=== PATIENT | female | born 1990 | race Caucasian/White ===

== ENCOUNTER 2017-04-01 13:25 | Emergency (ER) | payer OTHER ==
[2017-04-01 13:31] VITALS: BP 113/75
[2017-04-01] MEDS ORDERED: Ketorolac INJ* 60 MG/2 ML VIAL IM ONE (14:02)
--- NOTE | 2017-04-01 14:36 | RAD ---
HISTORY: Left shoulder injury COMPARISONS: July 20, 2016 VIEWS: 4, Frontal internal rotation, external rotation, outlet, and axillary views of the left shoulder FINDINGS: BONE DENSITY: Normal. BONES: There is no displaced fracture. JOINTS: There is no arthropathy. ALIGNMENT: There is no dislocation. SOFT TISSUES: Unremarkable. OTHER FINDINGS: None. IMPRESSION: NO ACUTE OSSEOUS INJURY. IF SYMPTOMS PERSIST, RECOMMEND REPEAT IMAGING.
[2017-04-01] MEDS ORDERED: Ibuprofen TAB* 400 MG PO ONE (14:52)
--- NOTE | 2017-04-01 14:54 | ED ---
Upper Extremity Pain - HPI Summary HPI Summary: 26F presents with left shoulder pain since sunday. She has history of dislocating her shoulder. She states she dislocated it and then placed in back in her self when she was pulling large crates full of water. She states since then she has noticed inc pain and weakness in the shoulder. She has chronic numbness along her left ulnar nerve with multiple tests to try and evaluate it. She has been using advil for her pain. she is right handed. - History of Current Complaint Chief Complaint: EDShoulderClavicleIsanderj Stated Complaint: LT SHOULDER PAIN Time Seen by Provider: 04/01/17 13:44 - Allergies/Home Medications Allergies/Adverse Reactions: Allergies Allergy/AdvReac Type Severity Reaction Status Date / Time No Known Allergies Allergy Verified 04/01/17 13:26 PMH/Surg Hx/FS Hx/Imm Hx Endocrine/Hematology History: Denies: Hx Anticoagulant Therapy Cardiovascular History: Denies: Hx Hypertension Infectious Disease History: No Infectious Disease History: Denies: Traveled Outside the [place] in Last 30 Days - Family History Known Family History: Positive: Hypertension - Social History Alcohol Use: None Substance Use Type: Reports: None Smoking Status (MU): Current Every Day Smoker Review of Systems Negative: Fever Negative: Chest Pain Negative: Shortness Of Breath Positive: Myalgia - left shoulder pain All Other Systems Reviewed And Are Negative: Yes Physical Exam Triage Information Reviewed: Yes Vital Signs On Initial Exam: Initial Vitals Temp Pulse Resp BP Pulse Ox 98.2 F 116 18 113/75 99 04/01/17 13:27 04/01/17 13:27 04/01/17 13:27 04/01/17 13:27 04/01/17 13:27 Vital Signs Reviewed: Yes Appearance: Positive: Well-Appearing Skin: Positive: Warm, Dry Head/Face: Positive: Normal Head/Face Inspection Eyes: Positive: Normal, Conjunctiva Clear Respiratory/Lung Sounds: Positive: Clear to Auscultation, Breath Sounds Present Cardiovascular: Positive: Normal, RRR Musculoskeletal: Positive: Limited @ - left shoulder due to pain, Other - good pulses, capillary refill < 2 secs, no step off or deformity to shoulder, pos apprehension test, neg yearsons, - [place] Coma Scale Coma Scale Total: 15 Diagnostics - Vital Signs Vital Signs Temp Pulse Resp BP Pulse Ox 04/01/17 13:27 98.2 F 116 18 113/75 99 - Laboratory Lab Statement: Any lab studies that have been ordered have been reviewed, and results considered in the medical decision making process. - Radiology shoulder Xray Interpretation: No Acute Changes Radiology Interpretation Completed By: Radiologist Course/Dx - Course Course Of Treatment: 26F presents with left shoulder pain s/p she dislocated on sunday and then relocated it herself. she has still been using the shoulder and has been notice weakness and inc pain. has chronic numbness/tingling in her pinky and ring finger. on exam no deformity noted, pos apprehension test, xray normal, placed in sling and will have follow up with ortho for potential rotator cuff injury with the possible dislocation, patient understands and agrees with plan - Diagnoses Differential Diagnosis/HQI/PQRI: Positive: Fracture (Closed), Strain, Sprain Provider Diagnoses: Left shoulder pain Discharge - Discharge Plan Condition: Good Disposition: HOME Prescriptions: Ibuprofen TAB* [Motrin TAB* 800 MG] 800 mg PO Q6H #25 tab Patient Education Materials: Shoulder Sprain (ED) Referrals: Abdelrahman HAY,Bryant Blood [Primary Care Provider] - Elieser Tsang MD [Medical Doctor] - Additional Instructions: Take Tylenol and ibuprofen every 6 hours as needed for pain Ice/heat area Keep sling on area Follow up with ortho Return to ED if develop any new or worsening symptoms
== END 2017-04-01 15:11 | disposition home or self-care (01) ==
LOC: ED 13:25
DX: M25.512 Pain in left shoulder (principal)
CPT/HCPCS: 96372; 99282; A9270-GY; J1885

== ENCOUNTER 2017-06-11 12:14 | Day surgery (SDC) | payer OTHER ==
--- NOTE | 2017-05-28 15:40 | HP ---
PREOPERATIVE HISTORY AND PHYSICAL: DATE OF ADMISSION/SURGERY: 06/11/17 DATE OF OFFICE VISIT: 05/23/17 ATTENDING SURGEON: Dr. Shanthi Pineda * (DICTATED BY GÉNESIS SCHROEDER) PROCEDURE: Left shoulder arthroscopic labral repair, decompression, debridement , subpectoral biceps tenodesis. CHIEF COMPLAINT: Left shoulder pain and instability. HISTORY OF PRESENT ILLNESS: Janie is a 26-year-old female, who presents to the clinic for history of two left shoulder dislocations and left shoulder instability and pain. She has failed conservative measures to include physical therapy and injections; therefore, agreed to undergo a left shoulder arthroscopic labral repair, decompression, subpectoral biceps tenodesis with Dr. Pineda on 06/11/17. PAST MEDICAL HISTORY: Migraines, depression, anxiety, PTSD, and cervicalgia. PAST SURGICAL HISTORY: , left ear surgery. Denies prior complications with anesthesia. MEDICATIONS: 1. Tramadol 50 mg 1 by mouth every 6 hours as needed. 2. Valium 5 mg take 1 to 2 tabs prior to MRI. 3. Paxil 40 mg 1 by mouth every day. 4. Maxalt 10 mg by mouth 1 at onset, may repeat in 2 hours x1, maximum daily dose of 3. 5. Multivitamin For Her once a day over the counter. ALLERGIES: TAPE and LATEX. No known drug allergies. FAMILY HISTORY: Positive for heart disease and diabetes. SOCIAL HISTORY: She lives with her daughter. She works as a home health aide. She smokes half a pack per day. She occasionally drinks alcohol. She is right - hand dominant. She denies illegal drug use. REVIEW OF SYSTEMS: General: Negative for fevers, chills, night sweats. No known anesthesia problems. HEENT: Positive for migraines. Denies lightheadedness or syncopal episodes. Integumentary: Negative for abrasions, lesions, or open wounds. Cardiothoracic: Negative for chest pain, palpitations , or edema. Negative for hypertension. Pulmonary: Negative for shortness of breath with exertion, chronic cough, or COPD. GI: Negative for nausea, vomiting, diarrhea, constipation, or GERD. : Negative for nocturia, urinary frequency, history of UTIs, or kidney problems. Musculoskeletal: Positive for current complaint. Positive for numbness and tingling in her left hand. Denies history of seizures, stroke, or epilepsy. Endocrine: Negative for diabetes or thyroid issues. Heme: Negative for easy bruising, history of bleeding disorder , history of DVT or PE. Infectious Disease: Negative for history of MRSA, hep C , or HIV. PHYSICAL EXAMINATION GENERAL: A 26-year-old, well-developed, well-nourished female, in no acute distress. Alert and oriented x3. Appropriate mood and affect. VITAL SIGNS: Height 62, weight 214, blood pressure 126/82, respiratory rate 15 , BMI 39.1. HEENT: Normocephalic, atraumatic. Throat clear. NECK: Supple. PULMONARY: Lungs are clear to auscultation bilaterally. No wheezing, rhonchi, or rales. CARDIO: Regular rate and rhythm. S1, S2. No murmurs, rubs, or gallops. No edema. ABDOMEN: Positive bowel sounds. Soft, nontender. NEURO: Alert and oriented x3. Cranial nerves grossly intact. Sensation intact to light touch. MUSCULOSKELETAL: Left upper extremity: Skin is intact, no warmth or erythema, tenderness to palpation over the bicipital groove and subacromial space. Forward flexion to 100 and abduction to 110, external rotation to 30, internal rotation to the lateral hip. +4/5 strength on rotator cuff testing, however, with significant pain. Positive Neer, Speed, Singh-Octavio, and [place]. +2 radial pulse. Sensation intact to light touch distally. DIAGNOSTIC STUDIES: MR arthrogram of the left shoulder revealed partial thickness tear of the undersurface of the supraspinatus tendon, damage to the biceps tendon, possible SLAP tear and AC joint arthritis. IMPRESSION: Left shoulder instability, labral tear, biceps tendinitis, and impingement. PLAN: The patient is scheduled to undergo a left shoulder arthroscopic labral repair, decompression, debridement, and subpectoral biceps tenodesis with Dr. Pineda on 06/11/17. She will return to the office in 10 to 14 days postop for followup and suture removal. A prescription for Percocet was e-prescribed to her pharmacy for postop pain management and prescription for Keflex was sent for antibiotic prophylaxis. GÉNESIS SCHROEDER [id number]/[facility] #: [id number] [facility] HOSPITALNuno
[~2017-06-11 12:14] MED LIST: Buffered Lidocaine 0.9% SYRIN* 5 ML/SYR SYRINGE INTRADERM ONE; Dexamethasone IV* 4 MG/ML 1 ML (4 MG) IV SLOW PU ONE; Famotidine IV* 10 MG/ML 2 ML (20 mg) IV ONE
[2017-06-11] MEDS ORDERED: Dexamethasone IV* 4 MG/ML 1 ML (4 MG) ONE (12:48)
[2017-06-11] MEDS ORDERED: Famotidine IV* 10 MG/ML 2 ML (20 mg) ONE (12:48)
[2017-06-11] MEDS ORDERED: Clindamycin 900 MG IVPREMIX(* 900 MG/50 ML SDV IV ONE (13:21)
[2017-06-11] MEDS ORDERED: Levalbuterol 0.63MG/3ML NEB INH ONE (13:50)
[2017-06-11] MEDS ORDERED: Levalbuterol 1.25MG/0.5ML NEB ONE (14:04)
[2017-06-11] MEDS ORDERED: Bupivacaine 0.25% SDV* 30 ML ONE ×2 (14:05→15:19)
[2017-06-11] MEDS ORDERED: Lidocaine 2% PF * 5 ML VIAL ONE (14:07)
[2017-06-11] MEDS ORDERED: Ketorolac INJ* 30 MG/ML 1 ML VIAL ONE (14:07)
[2017-06-11] MEDS ORDERED: Ondansetron INJ* 2 MG/ML VIAL ONE (14:07)
[2017-06-11] MEDS ORDERED: Propofol* 10 MG/ML 20 ML BTL IV PUSH ONE (14:07)
[2017-06-11] MEDS ORDERED: Atracurium* 10 MG/ML 10 ML VIAL ONE (14:11)
[2017-06-11] MEDS ORDERED: fentaNYL* 50 MCG/ML 5 ML VIAL (250 MCG VIAL) ONE (14:13)
[2017-06-11] MEDS ORDERED: Midazolam* 1 MG/ML 5 ML VIAL (5 MG) ONE (14:13)
[2017-06-11] MEDS ORDERED: fentaNYL* 50 MCG/ML 2 ML VIAL (100 MCG VIAL) ONE ×2 (15:18→17:01)
[2017-06-11] MEDS ORDERED: Glycopyrrolate IV* 0.2 MG/ML 1 ML VIAL ONE (15:30)
[2017-06-11] MEDS ORDERED: oxyCODONE/Acetamin 5/325 MG* TAB PO PRN (16:15)
[2017-06-11] MEDS ORDERED: DiMENhydriNATE IV* 50 MG/ML VIAL IV PUSH PRN (16:15)
[2017-06-11] MEDS ORDERED: Ondansetron INJ* 2 MG/ML VIAL IV PRN (16:15)
[2017-06-11] MEDS ORDERED: HYDROmorphone* 1 MG/ML 1 ML SYR IV PRN (16:15)
[2017-06-11] MEDS ORDERED: fentaNYL* 50 MCG/ML 2 ML VIAL (100 MCG VIAL) IV PRN (16:15)
[2017-06-11] MEDS ORDERED: Scopolamine 1.5 mg* PATCH TRANSDERM PRN (16:15)
[2017-06-11] MEDS ORDERED: oxyCODONE/Acetamin 5/325 MG* TAB ONE (17:10)
[2017-06-11 17:43] VITALS: BP 118/62
--- NOTE | 2017-06-13 18:08 | OP ---
DATE OF OPERATION: 06/11/17 [facility] DATE OF : [birth year] SURGEON: Shanthi Pineda MD JACKER FEEDER: GÉNESIS Reynaga. An activity assistant was needed for the entirety of the case to help with positioning, retraction, and was utilized throughout all portions of the case. ANESTHESIOLOGIST: Dr. Bergeron. ANESTHESIA: General. PRE-OP DIAGNOSIS: Left shoulder recurrent anterior dislocation with bicipital tendinitis and impingement as well as radiculopathy. POST-OP DIAGNOSIS: Left shoulder recurrent anterior dislocation with bicipital tendinitis and impingement as well as radiculopathy. OPERATIVE PROCEDURE: Left shoulder arthroscopy with: 1. Glenohumeral debridement. 2. Anterior labral repair. 3. Subacromial decompression with acromioplasty. 4. Subpectoral biceps tenodesis. COMPLICATIONS: None. ESTIMATED BLOOD LOSS: Minimal. IMPLANTS USED: Three Bioraptors and one Q-FIX anchor. INDICATIONS: Janie Sheridan is a 26-year-old female, who sustained a work- related injury in July 2016, where she dislocated her shoulder. She subsequently had a second dislocation at her home. She had tried a course of physical therapy. She also had some radiculopathy symptoms, which come and go. She had impingement on top of the instability. She has failed conservative management. She has had injections with some relief of the impingement-type symptoms, but she feels that the shoulder is unstable. After an extensive discussion and obtaining a worker's Comp approval, she has elected to proceed with left shoulder surgery. Risks included, but are not limited to bleeding, infection, damage to nerves, vessels, surrounding structures, wound nonhealing, persistent pain, need for further surgery, scarring, stiffness, incomplete relief of symptoms, risks of adhesive capsulitis, redislocation, fracture, risk of anesthesia, and risk of DVT. DESCRIPTION OF PROCEDURE: The patient was greeted in the preoperative area by the attending surgeon. Correct extremity was marked and consent was confirmed. The patient was brought back to the operative suite where she was placed in supine position on operating table. She underwent general anesthesia with endotracheal intubation after which she was placed in the right lower decubitus position. All bony prominences were padded. She was supported with a peg board. The left shoulder was then draped unsterile with 10 pounds of traction. A Vera hugger and SCDs were placed. The left shoulder was prepped and draped in usual sterile fashion beginning with chlorhexidine soap scrub, and alcohol wipe, and a final prep with ChloraPrep. After appropriate surgical pause indicating site, side, procedure, and administration of antibiotics, a posterolateral portal was made sharply with an 11 blade. The scope was introduced in the joint. The joint was examined. There was a small Hill-Sachs deformity. The glenohumeral joint had grade 0-1 changes. The biceps had erythema and was blood flow. The undersurface of the rotator cuff had no obvious undersurface tearing as subscapularis had minimal fraying. At this point, a low anterior portal was made and 8 mm cannula was placed. The labrum appeared to be intact, but was probed and there was evidence of tearing and it has healed incorrectly. The shoulder was sitting somewhat low and the shoulder, however was not dislocated frankly. The posterior labrum was intact. Inferior recess was intact. There was no evidence of HAGL lesion. At superior accessory portal, a 5 mm port was placed in superior recess. At this point, the labrum was then pealed back and taken down, beginning at the 3 o'clock position all the way to the 6 o'clock position. The bony surfaces were then prepared using a rasp. The capsule was also gently rasped as well, but the labrum quality was quite soft, and so care was taken not to damage this any further. The shaver was also helped to prepare the glenoid edge. Once the bony preparation was complete, 3 anchors were placed beginning at the 5:30 position, then 4:30, and then 3:30 position. The first anchor was passed with excellent purchase. The labrum was secured in a horizontal mattress configuration and tied down using arthroscopic knot tying. The second anchor was placed in a simple fashion as was the third. This helped to restore the capsule and labrum. The shoulder sat well. At this point, attention was directed to the biceps, which was inflamed and a tenotomy was done for later tenodesis. All fluid and debris was removed from the joint and attention was directed to the subacromial space. The scope was positioned in the subacromial space. The lateral portal was made in an outside-in fashion. A shaver was used to remove the abundant bursa, of which there was very thick abundant hyperemic bursa. This exposed the rotator cuff, which appeared to be intact. There was mild amount of fraying, but no more than 10% to 20% along the posterior aspect where the superior and inferior joints connect. The undersurface of the acromion had a small downward slopping spur. Once the synovectomy and bursectomy was complete, the undersurface of the acromion was then skeletonized using electrocautery device. The small subacromial spur was then debrided back using a 4-0 mm oval nyasia. Once all fluid and debris was removed, a 18 gauge needle was placed in arthroscopic visualization for later Depo- Medrol injection. The bed was airplaned to the left side. The anterior aspect of the shoulder was reprepped with ChloraPrep. A #15 blade was used to create an anterior incision in line with the biceps tendon encompassing the inferior two-thirds of the pec tendon. The soft tissue was carefully dissected. The dissection was done using the Metzenbaum scissors. Once the pec fascia was identified, the major dissection was done bluntly. The pec was identified and retracted superiorly. The bicipital groove was palpated and the biceps was removed and brought through the wound using a right angle clamp. The bicipital groove was then prepared in usual fashion with electrocautery, red ball rasp, and osteotome. The Q-FIX anchor was then used and drilled unicortically. The Q- FIX anchor was deployed with excellent purchase. The sutures were then passed to the tendon approximately 1 cm musculotendinous junction and the excess stump was sharply excised and shuttled back into the wound. The wounds were copiously irrigated with sterile saline. The portals were closed with 3-0 nylon. The anterior wound was closed in layers with 2-0 Vicryl and 3-0 Monocryl. The glenohumeral joint was injected with 0.25% Marcaine plain as well as the portal sites in the anterior wound. A total of 60 cc were used. Sterile dressings were applied. A Cryo/Cuff and UltraSling were applied. She was awoken from anesthesia and transferred to the PACU in stable condition. POSTOPERATIVE PLAN: She will be nonweightbearing. She will be in the sling for approximately 4 weeks. She will be allowed to start working on passive range of motion around 3-4 weeks with therapy. I will see the patient back in 10 to 14 days. She will be discharged on pain medications and antibiotics. DVT prophylaxis was considered, but deferred due to no previous personal or family history. [id number]/[facility] #: [id number] RACHELLE
[2017-06-14] MEDS ORDERED: Scopolomine PATCH Remove* 1 NOTE MISC PATCH OFF ONE (16:17)
== END 2017-06-11 17:47 | disposition home or self-care (01) ==
LOC: OREAST 12:14
PROVIDERS: ATTEND Orthopaedic Surgery
DX: M24.412 Recurrent dislocation, left shoulder (principal); M75.22 Bicipital tendinitis, left shoulder; M75.42 Impingement syndrome of left shoulder; M54.10 Radiculopathy, site unspecified; F17.210 Nicotine dependence, cigarettes, uncomplicated
CPT/HCPCS: 81025; A9270-GY; C1776; J1100; J1885; J2250; J2405; J2704; J3010

== ENCOUNTER → 2018-11-25 09:47 | Emergency (ER) | payer BC, OTHER ==
[~2018-11-25 09:47] MED LIST changes: -Buffered Lidocaine 0.9% SYRIN* 5 ML/SYR SYRINGE INTRADERM ONE; -Dexamethasone IV* 4 MG/ML 1 ML (4 MG) IV SLOW PU ONE; +Dexamethasone IV* 4 MG/ML 5 ML VIAL (20 MG) IVPB ONE; -Famotidine IV* 10 MG/ML 2 ML (20 mg) IV ONE; +Ketorolac INJ* 30 MG/ML 1 ML VIAL IV PUSH ONE; +NS 0.9% 1000 ML* 2,000 ML IV ONE; +PROCHLORPERAZINE INJ 5 MG/ML 2 ML VIAL IV ONE; +diPHENhydraMINE PO* 50 MG PO ONE
--- NOTE | 2018-11-25 10:20 | ED ---
Headache - HPI Summary HPI Summary: A 28 y/o female presents to [facility] with a chief complaint of intermittent migraines since 11/22/18. Per triage note, migraine for three days. sensitivity to light and sound, nausea, emesis x1. has maxalt at home, but not providing relief." The patient rates her pain as a 10/10. She claims that her pain is "right frontal around the forehead" She reports that the last time she had these symptoms she had a "minor seizure". She claims her migraine started at 08:30 on 11/25/18. In addition to the symptoms noted in the triage note, she also reports dizziness, eye twitching and drooping, feeling lethargic and speech impairment. She reports taking Zyrtec. She claims that she used to take medications for her migraines, but the medications mad her tachycardic. At triage her HR is [address] Kasper, neurologist at [facility], for her migraines. She is requesting for a Brain CT. She claims that her migraines have been worsening over the past four months and that she usually gets migraines four days a week. She has a Hx of anxiety and depression. - History Of Current Complaint Chief Complaint: EDHeadache Stated Complaint: HEADACHE X3 DAYS Hx Obtained From: Patient Last Known Well Date: 11/21/18 Onset/Duration: Started days ago, Still Present Initially Headache Was: Initial Pain Scale(0-10)= - 10 Currently Pain Is: Current Pain Scale(0-10)= - 10 Timing: Intermittent, Lasting: - hours Character: Migraine Location of Headache: Frontal Aggravating Factor: Bright Lights Allevating Factors: Nothing Associated Signs And Symptoms: Dizziness, Nausea, Vomiting - Allergies/Home Medications Allergies/Adverse Reactions: Allergies Allergy/AdvReac Type Severity Reaction Status Date / Time latex Allergy Hives Verified 11/25/18 09:59 Penicillins Allergy Nausea And Verified 11/25/18 09:59 Vomiting Home Medications: Home Medications Omeprazole 20 mg PO DAILY 11/25/18 [History Confirmed 11/25/18] PMH/Surg Hx/FS Hx/Imm Hx Endocrine/Hematology History: Reports: Hx Anemia Denies: Hx Anticoagulant Therapy, Hx Diabetes Cardiovascular History: Denies: Hx Hypertension, Hx Pacemaker/ICD Respiratory History: Reports: Other Respiratory Problems/Disorders - 14 YR HX OF SMOKING Denies: Hx Asthma GI History: Reports: Hx Gastroesophageal Reflux Disease, Hx Irritable Bowel History: Denies: Hx Renal Disease Musculoskeletal History: Reports: Other Musculoskeletal History - WORK RELATED LEFT SHOULDER INJURY 09/20 Sensory History: Reports: Hx Contacts or Glasses - BOTH, WILL WEAR GLASSES DOS Denies: Hx Hearing Aid Opthamlomology History: Reports: Hx Contacts or Glasses - BOTH, WILL WEAR GLASSES DOS Neurological History: Reports: Hx Migraine, Other Neuro Impairments/Disorders - 09/20 WORK RELATED INJURY TO LEFT SHOULDER Psychiatric History: Reports: Hx Anxiety, Hx Depression Denies: Hx Panic Disorder - Surgical History Surgery Procedure, Year, and Place: LEFT TYMPANOPLASTY 1996 [facility]. D& C 2005 [facility]. C- SECTION 2007 [facility]. LEFT SHOULDER RECONSTRUCTION 2016 Hx Anesthesia Reactions: Yes - NAUSEA POST Infectious Disease History: No Infectious Disease History: Denies: Traveled Outside the [place] in Last 30 Days - Family History Known Family History: Positive: Hypertension - Social History Alcohol Use: None Substance Use Type: Reports: None Smoking Status (MU): Current Every Day Smoker Type: Cigarettes Amount Used/How Often: 1/2 PPD FOR 14 YRS Length of Time of Smoking/Using Tobacco: 14 YRS Have You Smoked in the Last Year: Yes Review of Systems Negative: Fever Positive: Photophobia, Other - Positive: eye twitching and drooping ENT: Other - positive: sensitivity to sound Neurological: Other - Speech impaired, migraine, dizziness, lethargic Positive: Headache All Other Systems Reviewed And Are Negative: Yes Physical Exam - Summary Physical Exam Summary: Appearance: Well-appearing, Well-nourished, lying in bed comfortably Skin: Warm, dry, no obvious rash Eyes: sclera anicteric, no conjunctival pallor ENT: mucous membranes moist, pharynx appears normal Neck: Supple, nontender Respiratory: Clear to auscultation, no signs of respiratory distress Cardiovascular: Normal S1, S2. No murmurs. Normal distal pulses in tibial and radial bilaterally. Abdomen: Soft, nontender, normal active bowel sounds present Musculoskeletal: Normal, Strength/ROM Intact Neurological: A&Ox3, awake and alert, mentation is normal, speech is fluent and appropriate Psychiatric: affect is normal, does not appear anxious or depressed Triage Information Reviewed: Yes Vital Signs On Initial Exam: Initial Vitals Temp Pulse Resp BP Pulse Ox 98 F 102 16 130/88 96 11/25/18 09:56 11/25/18 09:56 11/25/18 09:56 11/25/18 09:56 11/25/18 09:56 Vital Signs Reviewed: Yes - [place] Coma Scale Best Eye Response: 4 - Spontaneous Best Motor Response: 6 - Obeys Commands Best Verbal Response: 5 - Oriented Coma Scale Total: 15 Diagnostics - Vital Signs Vital Signs Temp Pulse Resp BP Pulse Ox 11/25/18 09:56 98 F 102 16 130/88 96 - Laboratory Result Diagrams: 11/25/18 09:46 11/25/18 09:46 Lab Statement: Any lab studies that have been ordered have been reviewed, and results considered in the medical decision making process. - CT Brain CT Interpretation Completed By: Radiologist Summary of CT Findings: No acute intracranial pathology. ED physician has reviewed this imaging report. Headache Course/Dx - Course Course Of Treatment: This patient is a 28 y/o female who presents to [facility] with a chief complaint of intermittent migraines since 11/22/18. She has had a Hx of frequent migraines. She reports that maxalt does is not alleviating her pain. She also claims that she used to take other medications, but stopped because " it made her tachycardic". She is requesting for a Brain CT. The physical exam was unremarkable. In the ED course the patient was given Decadon IV, Toradol IV , Compazine IV, and Benadryl PO. Lab results obtained and are WNL. Brain CT was negative. The patient will be discharged with prescriptions for Decadron and Compazine. She is agreeable with this plan. - Diagnoses Provider Diagnoses: Migraine headache Discharge - Sign-Out/Discharge Documenting (check all that apply): Patient Departure - DC - Discharge Plan Condition: Improved Disposition: HOME Prescriptions: Dexamethasone TAB* [Decadron TAB*] 6 mg PO DAILY #3 tab Prochlorperazine TAB* [Compazine Tab*] 10 mg PO Q6H PRN #20 tab PRN Reason: Headache/Discomfort Patient Education Materials: Migraine Headache (ED) Referrals: Prudencio Quick MD [Primary Care Provider] - 3 Days (if needed) - Billing Disposition and Condition Condition: IMPROVED Disposition: Home - Attestation Statements Document Initiated by Scribe: Yes Documenting Scribe: Michele Liu Provider For Whom Scribe is Documenting (Include Credential): Cheikh Langley MD Scribe Attestation: I, Michele Liu, scribed for Cheikh Langley MD on 11/25/18 at 1711. Scribe Documentation Reviewed: Yes Provider Attestation: The documentation as recorded by the hollyeMichele accurately reflects the service I personally performed and the decisions made by me, Cheikh Langley MD Status of Scribe Document: Viewed
[2018-11-25 10:48] LABS: ABS Basophils 0.1 10^3/ul (0-0.2); ABS Eosinophils 0.1 10^3/ul (0-0.6); ABS Lymphocytes 1.7 10^3/ul (1.0-4.8); ABS Monocytes 0.4 10^3/ul (0-0.8); ABS Neutrophils 3.2 10^3/ul (1.5-7.7); ABS Nucleated RBC 0 10^3/ul; Eosinophil % 1.9 %; Hematocrit 40 % (35-47); Hemoglobin 13.1 g/dl (12.0-16.0); Lymphocyte % 31.5 %; Mean Corpuscular HGB Conc 33 g/dl (31-36); Mean Corpuscular Hemoglobin 27 pg (27-31); Mean Corpuscular Volume 81 fL (80-97); Mean Platelet Volume 7.9 fL (7.4-10.4); Nucleated Red Blood Cells % 0.1; Platelet Count 258 10^3/ul (150-450); Red Blood Count 4.92 10^6/ul (4.00-5.40); Red Cell Distribution Width 15 % (10.5-15); White Blood Count 5.5 10^3/ul (3.5-10.8)
[2018-11-25 11:10] LABS: ALT 10 U/L (7-52); AST 15 U/L (13-39); Albumin 3.8 g/dL (3.2-5.2); Albumin/Globulin Ratio 1.3 (1-3); Alkaline Phosphatase 90 U/L (34-104); Anion Gap 8 mmol/L (2-11); Blood Urea Nitrogen 9 mg/dL (6-24); CO2 Carbon Dioxide 23 mmol/L (22-32); Calcium 9.1 mg/dL (8.6-10.3); Chloride 106 mmol/L (101-111); Globulin 2.9 g/dL (2-4); Glucose 89 mg/dL (70-100); Potassium 3.6 mmol/L (3.5-5.0); Sodium 137 mmol/L (135-145); Total Protein 6.7 g/dL (6.4-8.9)
[2018-11-25 11:15] LABS: HCG Pregnancy < 0.60 mIU/mL
[2018-11-25 11:55] LABS: TSH (Thyroid Stimulating Horm) 0.68 mcIU/mL (0.34-5.60)
[2018-11-25 12:11] VITALS: BP 148/75
== END | disposition home or self-care (01) ==
LOC: ED 09:47
DX: G43.909 Migraine, unspecified, not intractable, without status migrainosus (principal); Z88.0 Allergy status to penicillin; Z91.040 Latex allergy status; F17.210 Nicotine dependence, cigarettes, uncomplicated
CPT/HCPCS: 36415; 70450; 80053; 84443; 84702; 85025; 96374; 96375; 99282; A9270-GY; J0780; J1100; J1885

== ENCOUNTER 2019-07-27 14:00 | Emergency (ER) | payer BC, OTHER ==
--- OUTSIDE RECORDS SUMMARY | 2019-07-27 14:16 | XMS REPORT | Continuity of Care Document ---
:1990 External Reference #:[id number] Author Name Socorro Reeder Care Team Providers Name Role Phone Bryant Quick MD Primary Care Physician Unavailable Payers Date Identification Numbers Payment Provider Subscriber Effective: 2012 Policy Number: [id number] [employer] Janie Sheridan Expires: 2016 Group Number: [id number] [address] [address] PayID: [id number] ANA ROSA Gordon [id number] Effective: 2016 Policy Number: [id number] Pete Sheridan Onset: 2016 Group Name: [id number] [address] PayID: [id number] Problems Active Problems Provider Date Unspecified sprain of left shoulder joint, Shanthi Pineda MD Onset: 07/24/2017 subsequent encounter Injury of shoulder region Shanthi Pineda MD Onset: 04/13/2017 Disorder of shoulder Shanthi Pineda MD Onset: 04/13/2017 Closed anterior dislocation of humerus Shanthi Pineda MD Onset: 04/13/2017 Neck pain Shanthi Pineda MD Onset: 04/13/2017 Brachial neuritis Shanthi Pineda MD Onset: 04/13/2017 Family History Date Family Member(s) Observation Comments General Heart Disease General Diabetes Social History Type Date Description Comments Sex Unknown Lives With Daughter Occupation Home Health Aide ETOH Use Occasionally consumes alcohol Tobacco Use Start: Unknown Patient is a current smoker, smokes every day Tobacco Use Start: Unknown Light tobacco smoker (10 or fewer cigarettes/day) Smoking Status Reviewed: 05/30/19 Light tobacco smoker (10 or fewer cigarettes/day) Exercise Type/Frequency Exercises sporadically Allergies, Adverse Reactions, Alerts Active Allergies Reaction Severity Comments Date Tape 07/20/2016 Latex 07/20/2016 Penicillins 10/23/2017 Amoxicillin 10/23/2017 Inactive Allergies NKDA 07/20/2016 Medications Active Medications SIG Qnty Indications Ordering Provider Date Paxil 1 by mouth every day Unknown 40mg Tablets Maxalt by mouth one at Unknown 10mg Tablets onset; may repeat in 2 hours x1. max daily dose three. Multi For Her once a day otc Unknown Capsules Aimovig 140 Dose administer 2 Unknown consecutive 70mg/ml Solution injections of the 70 Auto-Inject mg/ml auto inject, for a total of 140 mg Wellbutrin XL Unknown History Medications Mobic 1 by mouth daily 30tabs Shanthi Pineda MD 08/27/2017 - 15mg with food as 10/13/2017 Tablets needed for pain Medrol take as directed 21units M75.42 Shanthi Pineda MD 08/23/2017 - 4mg TBPK by packaging 10/13/2017 Diclofenac Sodium take 1 tablet 60tabs M75.42 Shanthi Pineda MD 08/23/2017 - twice a day with 10/13/[address] food Oxycodone-Acetamin 1 tabs by mouth 40tabs S43.402D Shanthi Pineda MD 2016 - ophen every 4-6 hours 10/13/2017 5-325mg as needed for Tablets pain Oxycodone-Acetamin 1 tabs by mouth 20tabs S43.015D Shanthi Pineda MD 2016 - ophen every 6 hours as 07/12/2017 5-325mg needed for pain Tablets Oxycodone-Acetamin 1-2 tabs by mouth 70tabs S43.015Nuno Pineda MD - ophen every 4-6 hours 06/21/2017 5-325mg as needed for Tablets pain. Do not fill until 06/09/17 Keflex take 1 tab by 20caps S43.015D Shanthi Pineda MD 05/23/2017 - 500mg mouth four times 07/23/2017 Capsules a day x 5 days Tramadol HCL 1 tablet by mouth 40tabs Shanthi Pineda MD 04/19/2017 - 50mg every 6 hours as 10/13/2017 Tablets needed pain Valium take 1-2 tabs 2tabs Shanthi Pineda MD 09/14/2016 - 5mg prior to mri 10/13/2017 Tablets imaging test Hydrocodone-Acetam 1 tablet every 6 30tabs S46.912A Remy F 07/27/2016 - inophen hours as needed MD Christiano 09/10/2016 5-325mg Tablets Topiramate 1/2 qhs for 1 60tabs Bryant Rodriguez 03/26/2013 - 25mg week then 1 qhs Marino Islas 07/20/2016 Tablets for 1 week then 2 qhs Medications Administered in Office Medication SIG Qnty Indications Ordering Provider Date Triamcinolone (Kenalog) Shanthi Pineda MD 09/18/2017 Injection Triamcinolone (Kenalog) Shanthi Pineda MD 04/13/2017 Injection Vital Signs Date Vital Result Comment 05/30/2019 10:01am Height 62 inches 5'2" Weight 220.00 lb BP Systolic 118 mmHg BP Diastolic 84 mmHg Respiratory Rate 15 /min Body Temperature 97.4 F Pain Level 4 BMI (Body Mass Index) 40.2 kg/m2 11/01/2018 11:08am Height 62 inches 5'2" Weight 220.00 lb BP Systolic 111 mmHg BP Diastolic 72 mmHg Respiratory Rate 18 /min Pain Level 8 BMI (Body Mass Index) 40.2 kg/m2 10/23/2017 10:32am Height 62 inches 5'2" Weight 219.00 lb per pt Heart Rate 84 /min reg BP Systolic Sitting 116 mmHg Rue, lg cuff BP Diastolic Sitting 80 mmHg Rue, lg cuff Respiratory Rate 16 /min Body Temperature 97.2 F tympanic Pain Level 0 BMI (Body Mass Index) 40.1 kg/m2 09/18/2017 11:06am Height 62 inches 5'2" Weight 221.00 lb BP Systolic 128 mmHg BP Diastolic 78 mmHg Respiratory Rate 20 /min Pain Level 7 BMI (Body Mass Index) 40.4 kg/m2 08/23/2017 1:08pm Height 62 inches 5'2" Weight 221.00 lb BP Systolic 124 mmHg BP Diastolic 74 mmHg Respiratory Rate 18 /min Pain Level 3 BMI (Body Mass Index) 40.4 kg/m2 07/24/2017 10:59am Height 62 inches 5'2" Weight 221.00 lb Heart Rate 80 /min BP Systolic 124 mmHg BP Diastolic 78 mmHg Respiratory Rate 18 /min Body Temperature 98.5 F Pain Level 5 BMI (Body Mass Index) 40.4 kg/m2 07/12/2017 9:55am Height 62 inches 5'2" Weight 221.00 lb BP Systolic 126 mmHg BP Diastolic 82 mmHg Respiratory Rate 20 /min Body Temperature 97.6 F Pain Level 10 BMI (Body Mass Index) 40.4 kg/m2 07/05/2017 1:50pm Height 62 inches 5'2" Weight 221.00 lb BP Systolic 126 mmHg BP Diastolic 84 mmHg Respiratory Rate 20 /min Body Temperature 97.9 F Pain Level 0 BMI (Body Mass Index) 40.4 kg/m2 06/21/2017 11:42am Height 62 inches 5'2" Weight 221.00 lb Respiratory Rate 16 /min Body Temperature 99.1 F Pain Level 10 BMI (Body Mass Index) 40.4 kg/m2 05/23/2017 10:09am Height 62 inches 5'2" Weight 214.00 lb BP Systolic 127 mmHg BP Diastolic 82 mmHg Respiratory Rate 15 /min Pain Level 6 BMI (Body Mass Index) 39.1 kg/m2 04/19/2017 2:40pm Height 62 inches 5'2" Weight 200.00 lb Heart Rate 93 /min BP Systolic 136 mmHg BP Diastolic 90 mmHg Body Temperature 98.6 F Pain Level 10 BMI (Body Mass Index) 36.6 kg/m2 04/13/2017 8:27am Height 62 inches 5'2" Weight 200.00 lb BP Systolic 124 mmHg BP Diastolic 77 mmHg Respiratory Rate 15 /min Pain Level 8 BMI (Body Mass Index) 36.6 kg/m2 10/10/2016 11:49am Height 62 inches 5'2" Weight 203.00 lb Respiratory Rate 18 /min Pain Level 2 BMI (Body Mass Index) 37.1 kg/m2 08/31/2016 11:48am Height 62 inches 5'2" Weight 203.00 lb Heart Rate 80 /min BP Systolic Sitting 120 mmHg BP Diastolic Sitting 78 mmHg Pain Level 6 BMI (Body Mass Index) 37.1 kg/m2 08/17/2016 11:00am Height 62 inches 5'2" Weight 203.00 lb Pain Level 9 BMI (Body Mass Index) 37.1 kg/m2 07/27/2016 10:06am Height 62 inches 5'2" Weight 203.00 lb Heart Rate 60 /min Respiratory Rate 16 /min Pain Level 7 BMI (Body Mass Index) 37.1 kg/m2 07/20/2016 11:12am Height 62 inches 5'2" Weight 203.00 lb Heart Rate 76 /min BP Systolic Sitting 140 mmHg BP Diastolic Sitting 80 mmHg Pain Level 8 BMI (Body Mass Index) 37.1 kg/m2 Procedures Date Code Description Status 09/18/201759792 Inject/Drain Joint/Bursa Major W/O US Completed 06/11/2017 18531 Arthroscopy,Shoulder Decompression Of Subacromial Space Completed W/Acromio 06/11/2017 69206 Arthroscopy,Shoulder,Surg,Capsulorrhaphy Completed 06/11/2017 76083 Tenodesis Biceps Long Tendon Completed 06/11/2017 81794 Tenodesis Biceps Long Tendon Completed 04/13/201753723 Inject/Drain Joint/Bursa Major W/O US Completed Encounters Type Date Location Provider Dx Diagnosis Office Visit 11/01/2018 Orthopedic Shanthi Pineda MD M75.42 Impingement 11:15a [facility] syndrome of left shoulder S43.015D Anterior dislocation of left humerus, subsequent encounter M75.42 Impingement syndrome of left shoulder Office Visit 10/23/2017 10:45a Orthopedic Julio Vazquez75.42 Impingement Services Of syndrome of left [facility] shoulder S43.015D Anterior dislocation of left humerus, subsequent encounter S46.102D Unsp injury of musc/fasc/tend long hd bicep, left arm, subs Office Visit 09/18/2017 10:45a Orthopedic Shanthi Pineda M75.42 Impingement Services Of syndrome of left [facility] shoulder S43.015D Anterior dislocation of left humerus, subsequent encounter S46.102D Unsp injury of musc/fasc/tend long hd bicep, left arm, subs Office Visit 04/19/2017 2:30p Orthopedic Shanthi Pineda S43.015A Anterior Services Of dislocation of [facility] left humerus, initial encounter M75.42 Impingement syndrome of left shoulder S46.102A Unsp injury of musc/fasc/tend long hd bicep, left arm, init M54.12 Radiculopathy, cervical region Office Visit 04/13/2017 Orthopedic Shanthi Pineda, M54.12 Radiculopathy, 8:30a Services Of cervical region [facility] M54.2 Cervicalgia S43.015A Anterior dislocation of left humerus, initial encounter M75.42 Impingement syndrome of left shoulder S46.102A Unsp injury of musc/fasc/tend long hd bicep, left arm, init M75.42 Impingement syndrome of left shoulder Office Visit 10/10/2016 Orthopedic Remy Sierra S43.402D Unspecified 10:30a Services Of MD Christiano sprain of left [facility]. shoulder joint, subs encntr Office Visit 08/31/2016 Orthopedic Remy Sierra S43.402D Unspecified 11:15a Services Of MD Christiano sprain of left [facility] shoulder joint, subs encntr M54.12 Radiculopathy, cervical region M54.2 Cervicalgia R20.0 Anesthesia of skin Office Visit 08/17/2016 Orthopedic Remy Sierra S43.402D Unspecified 11:00a Services Of MD Christiano sprain of left [facility] shoulder joint, subs encntr S43.402D Unspecified sprain of left shoulder joint, subs encntr Office Visit 07/27/2016 Orthopedic Remy Sierra S46.912A Strain unsp 10:00a Services Of MD antonio Alvarado/fasc/tend at [facility] shldr/up arm, left arm, init M75.42 Impingement syndrome of left shoulder Office Visit 07/20/2016 Orthopedic Remy Sierra S46.912A Strain unsp 11:00a Services Of MD antonio Alvarado/fasc/tend at [facility] shldr/up arm, left arm, init Office Visit 03/26/2013 Harriett Rodriguez 346.11 Migraine W/O Aura 8:45a Neurologic Marino Islas W/Intractable W/O Services Of Chief Gauger Status Migrainosus Plan of Treatment 11/01/2018 - Shanthi Pineda, MDM75.42 Impingement syndrome of left shoulderNew Xrays:MRI Shoulder Arthrogram Left W, Ordered: 11/01/18New Therapy:Physical TherapyFollow up:Follow up: after MRIS43.015D Anterior dislocation of left humerus, subsequent encounter
--- NOTE | 2019-07-27 16:57 | ED ---
Lower Extremity - HPI Summary HPI Summary: Patient is a 29-year-old female who presents emergency department for right ankle injury that occurred today. Patient states she was on tangling her dog leash is when she tripped and inverted right ankle and fell to the ground. No other injuries were sustained. Ambulating makes symptoms worse. Rest makes symptoms better. Symptoms are mild in severity. - History of Current Complaint Chief Complaint: EDExtremityLower Stated Complaint: RT ANKLE INJURY PER PT Time Seen by Provider: 07/27/19 16:50 Hx Obtained From: Patient Pain Intensity: 8 - Allergies/Home Medications Allergies/Adverse Reactions: Allergies Allergy/AdvReac Type Severity Reaction Status Date / Time amoxicillin Allergy Hives Verified 07/27/19 14:05 latex Allergy Hives Verified 07/27/19 14:05 Penicillins Allergy Nausea And Verified 07/27/19 14:05 Vomiting PMH/Surg Hx/FS Hx/Imm Hx Previously Healthy: Yes Endocrine/Hematology History: Reports: Hx Anemia Denies: Hx Anticoagulant Therapy, Hx Diabetes Cardiovascular History: Denies: Hx Hypertension, Hx Pacemaker/ICD Respiratory History: Reports: Other Respiratory Problems/Disorders - 14 YR HX OF SMOKING Denies: Hx Asthma GI History: Reports: Hx Gastroesophageal Reflux Disease, Hx Irritable Bowel History: Denies: Hx Renal Disease Musculoskeletal History: Reports: Other Musculoskeletal History - WORK RELATED LEFT SHOULDER INJURY 09/20 Sensory History: Reports: Hx Contacts or Glasses - BOTH, WILL WEAR GLASSES DOS Denies: Hx Hearing Aid Opthamlomology History: Reports: Hx Contacts or Glasses - BOTH, WILL WEAR GLASSES DOS Neurological History: Reports: Hx Migraine, Other Neuro Impairments/Disorders - 09/20 WORK RELATED INJURY TO LEFT SHOULDER Psychiatric History: Reports: Hx Anxiety, Hx Depression Denies: Hx Panic Disorder - Surgical History Surgery Procedure, Year, and Place: LEFT TYMPANOPLASTY 1996 [facility]. D& C 2005 [facility]. C- SECTION 2007 [facility]. LEFT SHOULDER RECONSTRUCTION 2016 Hx Anesthesia Reactions: Yes - NAUSEA POST Infectious Disease History: No Infectious Disease History: Denies: Traveled Outside the [place] in Last 30 Days - Family History Known Family History: Positive: Hypertension - Social History Occupation: Employed Full-time Lives: With Family Alcohol Use: None Substance Use Type: Reports: None Smoking Status (MU): Current Every Day Smoker Type: Cigarettes Amount Used/How Often: 1/2 PPD FOR 14 YRS Length of Time of Smoking/Using Tobacco: 14 YRS Have You Smoked in the Last Year: Yes Review of Systems Positive: Other - right ankle pain and swelling Skin: Negative Negative: Weakness, Paresthesia, Numbness All Other Systems Reviewed And Are Negative: Yes Physical Exam Triage Information Reviewed: Yes Vital Signs On Initial Exam: Initial Vitals Temp Pulse Resp BP Pulse Ox 99.2 F 88 16 127/75 99 07/27/19 14:02 07/27/19 14:02 07/27/19 14:02 07/27/19 14:02 07/27/19 14:02 Vital Signs Reviewed: Yes Appearance: Positive: Well-Appearing - Pt. sitting on chair with ice on right ankle. Friend present. Skin: Positive: Warm, Dry Head/Face: Positive: Normal Head/Face Inspection Eyes: Positive: Normal, EOMI Neck: Positive: Supple Musculoskeletal: Positive: Other - Moderate edema noted to the right lateral malleolus. Mild diffuse foot pain on palpation. Achilles tendon is intact. Good pedal pulse. No breaks in the skin. No proximal knee or tib-fib pain. Neurological: Positive: Normal, CN Intact II-III Psychiatric: Positive: Affect/Mood Appropriate Diagnostics - Vital Signs Vital Signs Temp Pulse Resp BP Pulse Ox 07/27/19 14:02 99.2 F 88 16 127/75 99 - Laboratory Lab Statement: Any lab studies that have been ordered have been reviewed, and results considered in the medical decision making process. Lower Extremity Course/Dx - Course Course Of Treatment: Patient with right ankle injury. Ankle x-ray showed soft tissue edema without fracture dislocation per radiology. Splint placed and crutches given. Advised to ice and elevate intermittently. Tylenol Motrin for pain as directed. Patient to follow-up with her family doctor or her orthopedic she is seen in the past. Patient understands and agrees with plan. - Diagnoses Differential Diagnosis/HQI/PQRI: Positive: Fracture (Closed), Sprain, Strain Provider Diagnoses: Ankle sprain Discharge ED - Sign-Out/Discharge Documenting (check all that apply): Patient Departure Patient Received Moderate/Deep Sedation with Procedure: No - Discharge Plan Condition: Good Disposition: HOME Patient Education Materials: Ankle Sprain (ED) Forms: *Work Release Referrals: Prudencio Quick MD [Primary Care Provider] - Additional Instructions: Follow up with your PCP if pain persist Ice and elevate Tylenol or Motrin for pain as directed Activity as tolerated Return to ER if symptoms change or worsen - Billing Disposition and Condition Condition: GOOD Disposition: Home
[2019-07-27 17:40] VITALS: BP 124/72
== END 2019-07-27 17:40 | disposition home or self-care (01) ==
LOC: ED 14:00
DX: S93.401A Sprain of unspecified ligament of right ankle, initial encounter (principal); W01.0XXA Fall on same level from slipping, tripping and stumbling without subsequent striking against object, initial encounter; Y93.K1 Activity, walking an animal; Y92.9 Unspecified place or not applicable; D64.9 Anemia, unspecified; K21.9 Gastro-esophageal reflux disease without esophagitis; F41.9 Anxiety disorder, unspecified; F32.9 Major depressive disorder, single episode, unspecified; F17.210 Nicotine dependence, cigarettes, uncomplicated; Z88.0 Allergy status to penicillin; Z88.1 Allergy status to other antibiotic agents; Z91.040 Latex allergy status; Z79.899 Other long term (current) drug therapy
CPT/HCPCS: 99282